=== PATIENT | male | born 1975 | race Caucasian/White ===

== ENCOUNTER 2017-01-05 10:57 | Emergency (ER) ==
[2017-01-05] MEDS ORDERED: ASPIRIN PO STA (11:17)
[2017-01-05 11:40] LABS: MANUAL DIFF NEEDED? NO
[2017-01-05 11:41] LABS: BASO% 0.4 % (0.0-0.8); EOS# 0.16 X1000 (0.0-0.7); IMM GRAN# 0.03 X1000 (0.0-0.04); IMM GRAN% 0.4 % (0.0-0.5); LYMPH# 1.81 X1000 (1.2-3.4); LYMPH% 22.7 % (20.5-51.1); MCH 31.4 PG (27-31); MCHC 34.8 g/dL (33-37); MCV 90.4 FL (81-99); MONO# 0.56 X1000 (0.11-0.59); MPV 9.9 FL (7.4-10.4); NEUT% 67.5 % (42.2-75.2); PLT 205 X1000 (130-400); RBC 5.09 XMIL (4.7-6.1)
--- NOTE | 2017-01-05 11:52 | PROVIDER DOCUMENTATION ---
HPI-Chest Pain <Augustina Bergman - Last Filed: 01/05/17 14:24> - General Source: patient <Alicia Malave - Last Filed: 01/05/17 15:43> - General Chief Complaint: Chest Pain Stated Complaint: RETURN/RECHECK Time Seen by Provider: 01/05/17 11:10 Allergies/Adverse Reactions: Patient Allergies Allergy/AdvReac Type Severity Reaction Status Date / Time erythromycin base AdvReac RASH Verified 06/13/15 00:53 Home Medications: Home Medication List Medication Instructions Recorded Confirmed Last Taken Type Ketoprofen 50 mg PO Q6-8H PRN PRN #14 capsule 01/02/17 Unknown Rx Diclofenac 1% Gel [Voltaren 1% Gel] 2 gm TOP 4XDAY #1 tube 01/05/17 Unknown Rx Meloxicam [Mobic] 15 mg PO DAILY #30 tablet 01/05/17 Unknown Rx - History of Present Illness-CP Nature of Presenting Problem: 41 y/o WM c/o CP x 1 week. Pt states it started in L anterior chest and now radiates to his back and sternum. Reports was seen in the ED 3 days ago for it after episode of diaphoresis and vomiting; was diagnosed with pleurisy. Pt has a hx of pleurisy and states this isn't the same pain. Reports a "knot" under L anterior ribs. vomiting x 2 over last 3 days. Denies any hx or URI in last month. (Alicia Malave) Review of Systems - Adult - REVIEW OF SYSTEMS - ADULT Constitutional: reports: no symptoms reported. denies: chills, fever Eyes: reports: no symptoms reported. denies: blurred vision, double vision Ears, Nose, Mouth & Throat: reports: no symptoms reported. denies: ear pain, nose pain Cardiovascular: reports: see HPI, chest pain. denies: palpitations Respiratory: reports: shortness of breath. denies: cough, wheezing Gastrointestinal: reports: see HPI, vomiting. denies: abdominal pain, diarrhea , nausea Genitourinary: reports: no symptoms reported. denies: dysuria, frequency Musculoskeletal: reports: no symptoms reported. denies: back pain, joint pain, joint swelling, neck pain Integumentary: reports: no symptoms reported. denies: nail changes, rash Neurological: reports: no symptoms reported. denies: headache/migraines, numbness, paresthesia Psychiatric: reports: no symptoms reported Endocrine: reports: no symptoms reported. denies: cold intolerance, heat intolerance Hematologic/Lymphatic: reports: no symptoms reported. denies: easy bruising, prolonged bleeding Allergic/Immunologic: reports: no symptoms reported All Other Systems: Reviewed and Negative <Alicia Malave - Last Filed: 01/05/17 15:43> Past History - Adult - PAST MEDICAL HISTORY-ADULT Review of Records: reports: Nursing Assessment Review, Medications Reviewed Genitourinary: reports: kidney stones Musculoskeletal: reports: chronic pain (back) - PRIOR SURGERIES/PROCEDURES Surgical/Procedure History: reports: none - IMMUNIZATION STATUS Childhood Immunizations: UTD Flu Vaccine: UTD - FAMILY HISTORY Family History: reviewed, not pertinent - SOCIAL HISTORY Smoking: cigarettes, less than 1 pack/day Provider spent 3-5 mins advising pt. on dangers of tobacco.: Discussed manners to quit use, and f/u contacts for add'l counseling. <Alicia Malave - Last Filed: 01/05/17 15:43> Physical Exam-General - PHYSICAL EXAM-ADULT Initial Vital Signs Reviewed: Yes - CONSTITUTIONAL General Appearance: alert, mild distress - EYES Eyes: pink conjunctivae - HEAD, EARS, NOSE, MOUTH & THROAT HENMT: normocephalic/atraumatic, moist mucous membranes - NECK Neck: supple, normal inspection - RESPIRATORY Respiratory: lungs clear, normal breath sounds, no respiratory distress, no accessory muscle use, pain on inspiration. negative: chest non-tender (TTP L inferior chest, anterior aspect), crackles, rales, rhonchi, stridor, wheezing - CARDIOVASCULAR Cardiovascular: regular rate, rhythm. negative: bradycardia, tachycardia - GASTROINTESTINAL (ABDOMEN) Abdominal Exam: normal bowel sounds, non tender, soft. negative: distended, guarding, rigid - MUSCULOSKELETAL Back Exam: normal inspection Extremity: normal range of motion, normal inspection. negative: abnormal NV exam - SKIN Integumentary: normal color, normal turgor, warm/dry - NEUROLOGIC Neurologic: negative: aphasia, motor weakness (bialt UE), sensory deficit - PSYCHIATRIC Psych/Mental Status: normal mood/affect, normal thought content, normal thought process, oriented x 3 <Alicia Malave - Last Filed: 01/05/17 15:43> Progress - EKG 1 Time of EKG reading by physician:: 11:09 EKG Read and Signed by:: Jerry Teixeira EKG Interpretation (*Must complete 3 of following elements*): Abnormal Rate: 75 Rhythm: normal sinus rhythm Comments: incomplete RBBB; possible inferior infarct, age undetermined 2 Time of EKG reading by physician:: 13:24 EKG Read and Signed by:: Jerry Teixeira EKG Interpretation (*Must complete 3 of following elements*): Normal Rate: 62 Rhythm: normal sinus rhythm Comments: normal ECG <PachecoAugustina - Last Filed: 01/05/17 14:24> - XRAY 1 XRAY Study: Chest Impression: See EMR Report (No evidence of acute disease, per Dr. Curran) - CT/MRI 1 CT Study: Thorax Impression: See EMR Report (Neagtive, pre Dr. Rivas) <Alicia Malave - Last Filed: 01/05/17 15:43> - PLAN OF CARE/RESULTS Progress/Plan/Lab Results: Discussed pt with Dr. Teixeira; he agreed with d/c plan after reviewing labs and Xray. Pt refuses to leave unless CT is completed. Discussed CT results with pt. (Alicia Malave) Departure <Terri Bergmanomi - Last Filed: 01/05/17 14:24> - Departure Time of Disposition Order: 14:17 Certified Medical Emergency: Emergent <Alicia Malave - Last Filed: 01/05/17 15:43> - Departure DIAGNOSIS: Costochondral chest pain Disposition: HOME 01 Condition: Stable Additional Instructions: Take medications as directed. Follow up with specialist for further management. ED Follow Up Instructions: You have been treated by a care provider in the Emergency Department. These instructions are being provided to you so you can have an understanding of how to care for yourself upon discharge. Upon discharge from the Emergency Department, you are responsible for making arrangements for follow-up care by a physician of your choice. Take all prescribed medications as directed. Return to the Emergency Department immediately for any new or worsening symptoms. You may call the Physician Referral phone number at [phone] to obtain a list of Physicians who are taking new patients. Prescriptions: Meloxicam [Mobic] 15 mg PO DAILY #30 tablet Diclofenac 1% Gel [Voltaren 1% Gel] 2 gm TOP 4XDAY #1 tube Referrals: None,PCP [Primary Care Provider] - John Brown MD [STAFF PHYSICIAN] - Forms: Return to School/Parent Work Instructions: Diclofenac skin gel, Costochondritis, [id number], Meloxicam tablets Attestation - Scribe Verification/Attestation Scribe:: Augustina Bergman Acting as Scribe for:: Jerry Teixeira Scribe documention review:: This chart was documented by a scribe and accurately reflects the service the provider performed and the decisions made by the provider. <Augustina Bergman - Last Filed: 01/05/17 14:24> - Physician/ DERIAN Attestation Patient care was provided by Advanced Practice Provider:: Yes Advanced Practice Provider:: Alicia Malave Advanced Practice Provider documentation review:: The Mid-level provider documentation, treatment plan and medical decision making was reviewed by the physician who agrees with all treatment and medical decision making by the P. <Alicia Malave - Last Filed: 01/05/17 15:43> Physician Attestation
[2017-01-05 11:56] LABS: AGAP 9; ALBUMIN 3.9 g/dL (3.5-5.0); ALKALINE PHOSPHATASE 76 U/L (32-122); BUN 12 mg/dL (8-22); CALCIUM 9.2 mg/dL (8.8-10.2); CHLORIDE 99 mmol/L (98-107); CK PROFILE 137 U/L (24-204); COSMO 272; GOT 17 U/L (10-34); GPT 35 U/L (10-44); MAGNESIUM 1.9 mg/dL (1.5-2.7); POTASSIUM 4.3 mmol/L (3.5-5.1); SODIUM 136 mmol/L (136-145); TCO2 28 mmol/L (25-35); TOTAL PROTEIN 6.9 g/dL (6.3-8.3)
[2017-01-05 12:10] LABS: INR 0.97 (0.86-1.15); PROTIME 13.2 Seconds (12.1-15.5)
[2017-01-05 12:20] LABS: UR AMPHETAMINES QUAL NONE DETECTED (NONE DETECT); UR BARBITUATES QUAL NONE DETECTED (NONE DETECT); UR BENZODIAZEPIN QUAL NONE DETECTED (NONE DETECT); UR CANNABINOIDS QUAL NONE DETECTED (NONE DETECT); UR COCAINE QUAL NONE DETECTED (NONE DETECT); UR MDMA QUAL NONE DETECTED (NONE DETECT); UR METHADONE QUAL NONE DETECTED (NONE DETECT); UR METHAMPHETAMINE QUAL NONE DETECTED (NONE DETECT); UR OPIATES QUAL PRESUMPTIVE POSITIVE (NONE DETECT); UR OXYCODONE QUAL PRESUMPTIVE POSITIVE (NONE DETECT); UR PCP QUAL NONE DETECTED (NONE DETECT); UR TCA QUAL NONE DETECTED (NONE DETECT)
--- NOTE | 2017-01-05 12:22 | Diag Imaging Result Document ---
PROCEDURE NAME: CHEST-2 VIEWS - 01/05/2017 CHEST 2 VIEWS: FINDINGS: Compared with 01/02/2017. Heart size is normal. The lungs appear clear. There is no pleural effusion or pneumothorax identified. There is no obvious rib lesion seen. IMPRESSION: No evidence of acute disease.
[2017-01-05 12:23] LABS: AMYLASE 56 U/L (20-200); LIPASE 66 U/L (13-60)
[2017-01-05 14:03] VITALS: BP 128/78
[2017-01-05] MEDS ORDERED: TORADOL IM ONE (14:23)
--- NOTE | 2017-01-05 14:37 | EKG Report ---
Test Performed on : 01/05/2017 11:09:53 AM Test Reason : chest pain Blood Pressure : / mmHG Vent. Rate : 075 BPM Atrial Rate : 075 BPM P-R Int : 152 ms QRS Dur : 092 ms QT Int : 344 ms P-R-T Axes : 039 -01 026 degrees QTc Int : 384 ms Normal sinus rhythm. Incomplete right bundle branch block Possible Inferior infarct , age undetermined Abnormal ECG No previous ECGs available Unconfirmed Result
--- NOTE | 2017-01-05 14:39 | EKG Report ---
Test Performed on : 01/05/2017 1:24:42 PM Test Reason : 2hour ekg Blood Pressure : / mmHG Vent. Rate : 062 BPM Atrial Rate : 062 BPM P-R Int : 148 ms QRS Dur : 092 ms QT Int : 364 ms P-R-T Axes : 028 032 007 degrees QTc Int : 369 ms Normal sinus rhythm. Normal ECG When compared with ECG of 05-JAN-2017 11:09, (Unconfirmed) No significant change was found Unconfirmed Result
--- NOTE | 2017-01-05 17:19 | Diag Imaging Result Document ---
PROCEDURE NAME: CT THORAX W/O CONTRAST - 01/05/2017 CT CHEST WITHOUT CONTRAST: FINDINGS: No pleural effusions. No cardiomegaly. No thoracic aortic aneurysm. There are small calcified mediastinal lymph nodes. No enlarged lymph nodes. No pneumothoraces. There is a calcified granuloma in the right apex. No infiltrates. No bronchiectasis. No contusion. No displaced fracture. IMPRESSION: Negative CT of the chest. A preliminary report was given at 3:34 p.m..
== END 2017-01-05 16:03 | disposition home or self-care (01) ==
LOC: P.ED 10:57
DX: R07.1 Chest pain on breathing (principal); R94.31 Abnormal electrocardiogram [ECG] [EKG]; R07.89 Other chest pain; R06.02 Shortness of breath; M54.9 Dorsalgia, unspecified; R22.2 Localized swelling, mass and lump, trunk; R11.10 Vomiting, unspecified; G89.29 Other chronic pain; Z87.442 Personal history of urinary calculi; F17.210 Nicotine dependence, cigarettes, uncomplicated; Z71.6 Tobacco abuse counseling
CPT/HCPCS: 36415; 71020; 71250; 80053; 80305; 82150; 82550; 83690; 83735; 83880; 84484; 85025; 85379; 85610; 85730; 93005; 96372; J1885